=== PATIENT | female | born 1955 ===

== ENCOUNTER → 2017-04-16 | Day surgery (SDC) | payer SELFPAY ==
[2017-04-12 13:46] VITALS: Ht 144.8 cm; Wt 46.0 kg
[~2017-04-16] VITALS: Ht 144.8 cm; Wt 46.0 kg
[~2017-04-16] MED LIST: DIABETES MED PO; DIAMICRON PO; GLC/500 PO; GLIM4TAB2 PO; INSULIN HUMAN REGULAR PER UNIT 3 UNITS in SYRINGE 2.97 ML IV ONE; LABETALOL HCL IV 5 MG/ML 20ML IV ONE; LIDOCAINE HCL 2% 2 ML VIAL (20MG/ML) ONE; LOSA50TA54 PO; METF-382 PO; METF-383 PO; MIDAZOLAM HCL 1 MG/ML 2ML VIAL ONE; MULT-506 PO; ONDANSETRON INJ 2 MG/ML 2 ML VIAL IV PRN; ONDANSETRON INJ 2 MG/ML 2 ML VIAL ONE; PROPOFOL IV EMULSION 10 MG/ML 20 ML VIAL IV ONE; SIMV20TA2 PO; THIA50TA3 PO; [UNRECOGNIZED DRUG - OTHER] PO
--- NOTE | 2017-04-16 08:48 | Endo History and Physical ---
History & Physical Date of Service: Apr 16, 2017. Chief Complaint: Colon cancer screening Referring Physician: History of Present Illness Patient presents for colon cancer screening today. There is no family history or symptoms today. Consent was obtained using a [place] math interventionist Past Surgical History Hx Cardiac Surgery: No Hx Internal Defibrillator: No Hx Pacemaker: No Hx Abdominal Surgery: No Hx of Implantable Prosthesis: No Hx Cancer Surgery: No Hx Thoracic Surgery: No Hx Orthopedic: No Hx Urinary Tract Surgery: No Family History None Social History Smoking Status: Current Every Day Smoker Hx Substance Use: No Hx Alcohol Use: Yes (OCCASIONAL) Allergies Uncoded Allergies: NKA (Allergy, Unknown, 04/16/17) Current Medications Reported Home Medications Medications Dose Route/Sig Max Daily Dose Days Date Category Glimepiride 4 Mg Tab 1 Tab PO DAILY 30 04/16/17 Reported Multivitamin (Multivitamins) Tab 1 Tab PO DAILY 04/12/17 Reported Glucophage (Metformin Hcl) 500 Mg Tab 500 Mg PO BID 04/12/17 Reported Vital Signs Weight (Kilograms): 46 Height (Feet): 4 Height (Inches): 9 Physical Exam General Appearance: no apparent distress Respiratory/Chest: Auscultation: breath sounds normal Cardiovascular: Heart Auscultation: RRR Assessment and Plan Patient for colon cancer screening today. I have discussed the risks to include bleeding, infection, perforation pain and missed polyps. Consent was obtained using a [place] math interventionist.
--- NOTE | 2017-04-16 10:44 | Discharge Instructions ---
Endoscopy Patient Instructions Date / Procedure(s) Performed Apr 16, 2017. Colonoscopy Allergy Information Coded Allergies: No Known Allergies (Unverified , 04/16/17) Discharge Date / Findings Apr 16, 2017. Internal and external hemorrhoids Medication Instructions Reported Home Medications Medications Dose Route/Sig Max Daily Dose Days Date Category Glimepiride 4 Mg Tab 1 Tab PO DAILY 30 04/16/17 Reported Multivitamin (Multivitamins) Tab 1 Tab PO DAILY 04/12/17 Reported Glucophage (Metformin Hcl) 500 Mg Tab 500 Mg PO BID 04/12/17 Reported Provider Instructions Activity Restrictions - No exercising or heavy lifting for 24 hours. - Do not drink alcohol the day of the procedure. - Do not drive a car or operate machinery until the day after the procedure. - Do not make any important decisions or sign important papers in 24 hours after the procedure. Following Day: - Return to full activity which may include returning to work/school. Diet Start your diet with liquids and light foods (jello, soup, juice, toast). Then eat your usual diet if not nauseated. Treatment For Common After Affects For mild abdominal pain, bloating, or excessive gas: - Rest - Eat lightly - Lie on right side Follow-Up Information Repeat colonoscopy in 5 years (suboptimal bowel preparation) Given your elevated blood pressure I would suggest ER evaluation today. Otherwise please make a primary care appointment for this week Anesthesia Information What You Should Know You have had a procedure that required some medicine to reduce anxiety and discomfort. This treatment is called moderate sedation. After receiving the treatment, you may be sleepy, but you will be able to breathe on your own. The effects of the treatment may last for several hours. Follow these instructions along with Activity/Diet recommendations noted above: * Do NOT do anything where dizziness or clumsiness would be dangerous. * Rest quietly at home today, then you can be up and about tomorrow. * Have a responsible person stay with you the rest of today. * You may have had an I.V. today. If so, you may take the dressing off later today. Recommendations Call your doctor if: * Trouble breathing * Continuous vomiting for more than 24 hours * Temperature above 101 degrees * Severe abdominal pain or bloating * Pain not relieved by pain medicine ordered * There is increased drainage or redness from any incision * A large amount of rectal bleeding greater than 2-3 tablespoons. (If you had a polyp/s removed or have hemorrhoids, a small amount of blood - from the rectum is to be expected.) * You have any unanswered questions or concerns. IN THE EVENT OF A SERIOUS EMERGENCY, GO TO THE NEAREST EMERGENCY ROOM Your discharge instructions were prepared by provider Ashley Paris. Patient Instructions Signature Page Corrine Heard Patient (or Guardian) Signature/Date: I have read and understand the instructions given to me by my caregivers. Caregiver/RN/Doctor Signature/Date: The above-named patient and/or guardian has received patient instructions on this date. + Original Patient Signature Page (only) stays with chart. Please make copy for patient.
--- NOTE | 2017-04-16 10:48 | GI REPORT ---
Procedure Date: 04/16/2017 10:19 AM Procedure: Colonoscopy Indications: Screening for colorectal malignant neoplasm Medicines: Monitored Anesthesia Care Complications: No immediate complications. Estimated blood loss: Minimal. Estimated Blood Loss: Estimated blood loss: none. Procedure: Pre-Anesthesia Assessment: - Prior to the procedure, a History and Physical was performed, and patient medications, allergies and sensitivities were reviewed. The patient's tolerance of previous anesthesia was reviewed. - The risks and benefits of the procedure and the sedation options and risks were discussed with the patient. All questions were answered and informed consent was obtained. - Patient identification and proposed procedure were verified prior to the procedure by the physician, the nurse and the dispatcher street department. The procedure was verified in the procedure room. - Pre-procedure physical examination revealed no contraindications to sedation. - ASA Grade Assessment: III - A patient with severe systemic disease. - After reviewing the risks and benefits, the patient was deemed in satisfactory condition to undergo the procedure. - The anesthesia plan was to use monitored anesthesia care (MAC). - Immediately prior to administration of medications, the patient was re-assessed for adequacy to receive sedatives. - The heart rate, respiratory rate, oxygen saturations, blood pressure, adequacy of pulmonary ventilation, and response to care were monitored throughout the procedure. - The physical status of the patient was re-assessed after the procedure. After I obtained informed consent, the scope was passed under direct vision. Throughout the procedure, the patient's blood pressure, pulse, and oxygen saturations were monitored continuously. The scope was introduced through the anus and advanced to the terminal ileum. The colonoscopy was performed without difficulty. The patient tolerated the procedure well. The quality of the bowel preparation was adequate to identify polyps 6 mm and larger in size. Findings: The digital rectal exam findings include non-thrombosed external hemorrhoids. Pertinent negatives include normal sphincter tone. The terminal ileum appeared normal. Internal hemorrhoids were found during retroflexion. The hemorrhoids were moderate. The exam was otherwise without abnormality. Impression: - Non-thrombosed external hemorrhoids found on digital rectal exam. - The examined portion of the ileum was normal. - Internal hemorrhoids. - The examination was otherwise normal. Otherwise can handler who her power of document review attorney Recommendation: - Discharge patient to home (ambulatory). - Advance diet as tolerated today. - Repeat colonoscopy in 5 months because the bowel preparation was suboptimal. Marten Paris, D.Raghavendra Paris DO 04/16/2017 10:48:01 AM This report has been signed electronically. Note Initiated On: 04/16/2017 10:19 AM I attest to the content of the Intraoperative Record and orders documented therein, exceptions below
--- NOTE | 2017-04-16 11:22 | Progress Note ---
Progress Note Date of Service Apr 16, 2017. Progress Note I was called to see this patient prior to discharge. She has significant elevation of her systolic and diastolic blood pressures. It appears she does have a history of hypertension but is presently not on any medications as she recently moved the region. Given the drastic elevation of her blood pressure I would suggest an ER evaluation, the patient is presently refusing. We will make efforts to have her see her primary care doctor as an outpatient over the next few days. Again, I have advised that the patient seek medical attention in the ER today for her blood pressure elevation.
[2017-04-16 12:03] VITALS: BP 168/102; PULSE 83; O2SAT 98
--- NOTE | 2017-04-16 13:02 | Anesthesiology Progress Note ---
Anesthesia Post Op Note Date & Time Apr 16, 2017 at 12:42 Vital Signs Pain Intensity: 0 Vital Signs Past 12 Hours Date Time Temp Pulse Resp B/P (MAP) Pulse Ox O2 Delivery O2 Flow Rate FiO2 04/16/17 12:03 83 20 168/102 (124) 98 Room Air 04/16/17 11:48 80 20 175/99 (124) 97 Room Air 04/16/17 11:35 88 20 155/94 (114) 98 Room Air 04/16/17 11:29 99 20 184/112 (136) 98 Room Air 04/16/17 11:20 95 20 190/107 (134) 100 Room Air 04/16/17 11:15 89 20 183/116 (138) 99 Room Air 04/16/17 11:10 89 20 200/109 (139) 98 Room Air 04/16/17 11:05 91 20 173/107 (129) 98 Room Air 04/16/17 11:03 93 20 173/104 (127) 99 Room Air 04/16/17 10:48 96 20 140/91 (107) 100 Room Air 04/16/17 09:05 36.6 105 18 157/95 (115) 100 Room Air Notes Mental Status: alert / awake / arousable, participated in evaluation Pt Amnestic to Procedure: Yes Nausea / Vomiting: adequately controlled Pain: adequately controlled Airway Patency, RR, SpO2: stable & adequate BP & HR: stable & adequate Hydration State: stable & adequate Anesthetic Complications: no major complications apparent The patient is a 61 y/o female with a h/o HTN, NIDDM, + tob and depression s/ p colonoscopy with Dr. Paris. The patient is from [place] and came here recently. She does not speak [place] so a [place] hot plate plywood press feeder was used. Preoperatively, the patient's BSG was elevated to 271. She has held her Glucophage for 2 days. Per the patient and her daughter, the patient's blood sugars have been poorly controlled for some time since the patient has not seen a PCP since leaving [place]. At home, her blood sugars have been as high as 800 but usually average in the 300s. The patient was given 3 units regular IV Insulin and her BSG improved to 200. The patient's BP on arrival to the endoscopy unit was 157/95 and it tosha to 187/95 on arrival to the procedure room. The patient had been on BP medication in [place] but has not been on any since. Per the patient's daughter, the patient smokes and drinks heavily and is not compliant with a diabetic or hypertensive diet. During the procedure the patient did well with no issues. Her BP ranged from 110-180s/[id number]. In recovery, her BP became elevated to 183/116. She denied any chest pain, shortness of breath, headache, changes in vision, lightheaded or dizziness. The patient was given 10mg IV labetalol. I spoke to Dr. Paris who agreed that because the patient does not have an established PCP that she should go to the ED for further evaluation and treatment of her BP. The patient however refused to go to the ED and wanted to sign out AMA. A [place] hot plate plywood press feeder was used for all communication with the patient. She was informed of the risks of signing out AMA including the risk of stroke, myocardial infarction, sudden cardiac , respiratory failure and by refusing to go to the ED. She understood and signed the AMA form. Dr. Paris was able to get an appointment for her with a PCP for her to see tomorrow at 10:20 AM. The patient's BP on discharge with improved to 168/102 and she felt well with no complaints. She was instructed to go the to the ED if she has any chest pain, shortness of breath, lightheaded or dizziness, severe headache or changes in vision. She understands and agrees.
== END | disposition home or self-care (01) ==
LOC: C.GI 08:21
PROVIDERS: ATTEND Internal Medicine Gastroenterology
DX: Z12.11 Encounter for screening for malignant neoplasm of colon (principal); K64.8 Other hemorrhoids; K64.5 Perianal venous thrombosis; F17.200 Nicotine dependence, unspecified, uncomplicated; Z79.84 Long term (current) use of oral hypoglycemic drugs; Z79.899 Other long term (current) drug therapy

== ENCOUNTER 2021-10-29 12:31 | Inpatient (IN) ==
[2021-10-29] MEDS ORDERED: SODIUM CHLORIDE 0.9% 500 ML IV STA (13:06)
--- NOTE | 2021-10-29 13:22 | Emergency Department Note ---
History of Present Illness General Chief complaint: Hematuria Stated complaint: HEMATURIA Time Seen by Provider: 10/29/21 12:48 History of Present Illness Maximum Pain Intensity: 6 Patient and daughter elected to have the daughter translate for the patient. Patient's nurse from [place] is also in the room. This is a 66-year-old female who just moved to the [facility] from [place] 2 w eeks ago with a history of type 2 diabetes, hypertension, high cholesterol, accompanied by her daughter who has lived in [place] for 20+ years who presents with hematuria, lower abdominal pain, and flank pain that has been present for the past week. Patient reports lower abdominal pain only when she urinates. When she does not urinate she does not have any pain. She reports constant right-sided hip/flank pain that also began around this time. This does not come and go. She has never had anything like this happen to her before. They tried using [id number] UTI relief medication without any relief in her symptoms. They deny any dysuria, abnormal vaginal bleeding or discharge, fevers, chills, nausea, vomiting, diarrhea. Per daughter, she moved her [place] because the patient [place] town in [place] and did not have good health care and she was tired of listening to her mother complain about her living situation. Apparently when the [place] her blood sugars were as high as 800 although they are now down into the 300 range as she is eating better (was only eating twice per week) and they are controlling her diabetes better with insulin. Daughter states that her mother has drank "a lot" and smoked cigarettes all of her life. They visited an urgent care recently but have not been seen yet by primary care anywhere. Home Medications Medication Instructions Recorded Confirmed Type DAFORIN 10 drp PO DAILY #0 02/26/17 History DIAMICRON 1 tab PO BID #0 02/26/17 History LOSARTAN POTASSIUM (COZAAR) 50 mg PO BID #0 tab 02/26/17 History METFORMIN EXT REL (GLUCOPHAGE EXT 1 tab PO BID 30 Days #60 tab 02/26/17 Rx REL) METFORMIN HCL (GLUCOPHAGE) 850 mg PO BID #0 tab 02/26/17 History Simvastatin (Zocor) 10 mg PO QPM #0 tab 02/26/17 History Thiamine Hcl (Vitamin B-1) 1 tab PO DAILY #0 tab 02/26/17 History METFORMIN HCL (GLUCOPHAGE) 500 mg PO BID #0 04/12/17 History Multivitamin 1 tab PO DAILY #0 04/12/17 History GLIMEPIRIDE 1 tab PO DAILY 30 Days #30 tab 04/16/17 History aspirin 81 mg tablet 81 mg PO DAILY 10/29/21 10/29/21 History clopidogrel 75 mg tablet (Plavix) 75 mg PO DAILY 10/29/21 10/29/21 History Allergies Allergy/AdvReac Type Severity Reaction Status Date / Time No Known Allergies Allergy Unverified 04/16/17 09:29 Past Med/Surg History Medical History (Updated 10/29/21 @ 17:50 by BETTINA Bo) Diabetes High cholesterol HTN (hypertension) Family History (Updated 10/29/21 @ 17:39 by Suzan Shah PA-C) Mother Uterine cancer Social History Smoking Status: Never smoker Preferred Language: Hungarian Feels Safe at Home: Yes Review of Systems See HPI for pertinent positives & negatives. and A total of 10 systems reviewed and were otherwise negative Physical Exam Vital Signs Vital Signs - 24 hr 10/29/21 12:39 10/29/21 12:56 10/29/21 13:00 Temperature 36.5 C Temperature Source Oral Pulse Rate 98 H 97 H 99 H Pulse Rate from SpO2 Sensor Pulse Rhythm Regular Pulse Strength Normal Respiratory Rate 20 18 22 Respiratory Effort / Characteristics Non-Labored Spontaneous Respiratory Depth Normal Respiratory Pattern Regular Blood Pressure 175/96 H Blood Pressure Mean 122 Blood Pressure Position Sitting Pulse Oximetry 98 Oxygen Delivery Method Room Air Room Air Sepsis Recent Fever Within 48 Hours No Sepsis New/Unexplained Change in Mental Status No Sepsis Action Taken by Nursing No Action Required 10/29/21 13:10 10/29/21 13:20 10/29/21 13:27 Temperature Temperature Source Pulse Rate 97 H 96 H 95 H Pulse Rate from SpO2 Sensor 95 H Pulse Rhythm Pulse Strength Respiratory Rate 20 18 16 Respiratory Effort / Characteristics Respiratory Depth Respiratory Pattern Blood Pressure 209/119 H Blood Pressure Mean 149 Blood Pressure Position Pulse Oximetry 100 Oxygen Delivery Method Room Air Room Air Room Air Sepsis Recent Fever Within 48 Hours Sepsis New/Unexplained Change in Mental Status Sepsis Action Taken by Nursing 10/29/21 13:30 10/29/21 13:40 10/29/21 13:50 Temperature Temperature Source Pulse Rate 94 H 97 H 96 H Pulse Rate from SpO2 Sensor 94 H 97 H 96 H Pulse Rhythm Pulse Strength Respiratory Rate 17 17 20 Respiratory Effort / Characteristics Respiratory Depth Respiratory Pattern Blood Pressure 208/119 H Blood Pressure Mean 148 Blood Pressure Position Pulse Oximetry 100 99 100 Oxygen Delivery Method Room Air Room Air Room Air Sepsis Recent Fever Within 48 Hours Sepsis New/Unexplained Change in Mental Status Sepsis Action Taken by Nursing 10/29/21 14:00 10/29/21 14:10 Temperature Temperature Source Pulse Rate 95 H 91 H Pulse Rate from SpO2 Sensor 95 H 90 Pulse Rhythm Pulse Strength Respiratory Rate 17 20 Respiratory Effort / Characteristics Respiratory Depth Respiratory Pattern Blood Pressure 227/122 H Blood Pressure Mean 157 Blood Pressure Position Pulse Oximetry 99 100 Oxygen Delivery Method Room Air Room Air Sepsis Recent Fever Within 48 Hours Sepsis New/Unexplained Change in Mental Status Sepsis Action Taken by Nursing CONSTITUTIONAL: Thin appearing, in no acute distress HEAD: Normocephalic, atraumatic. ENMT: External ears normal. Nose with normal external appearance, no congestion. Oral mucous membranes moist. Oropharynx normal. NECK: Full active range of motion. RESPIRATORY: Breathing unlabored and symmetric. Lungs clear to auscultation bilaterally. No wheeze, rales, or rhonchi. CARDIOVASCULAR: Regular rate and rhythm. There is a 3 out of 6 systolic murmur identified at the aortic and pulmonic region. ABDOMEN: Normal bowel sounds. Abdomen is soft. There is right lower quadrant tenderness. No peritonitis. Liver palpates slightly enlarged. Right CVA tenderness is noted. Negative straight leg raise and psoas sign. GENITOURINARY: Gross hematuria is visualized in the urine specimen cup after providing sample MUSCULOSKELETAL: Moves all extremities at all joints without pain or difficulty. No cyanosis or edema. SKIN: [place], warm, dry. Not obviously jaundiced although conjunctiva have a slight scleral icterus appearance in the inferior 50%. NEUROLOGIC: Alert, makes eye contact appropriately. Responds appropriately to her daughter's questions. Normal tone. Strength 5+ in bilateral upper and lower extremities. PSYCHIATRIC: Appropriate. Normal affect. Course Consultations Consultation #1: Spoke with Suzan Shah PA-C ([facility] hospitalist) who consulted with her attending and requested that I consult with urology and CONTRACTS REPRESENTATIVE prior to admission to make sure they are comfortable with admitting the patient here for now Consultation #2: Spoke with Dr. Mitchell (urology) regarding the case and imaging findings who also visualized the CT scan. He recommended inserting a Richey catheter to decompress the bladder. From a urologic standpoint he is comfortable with the patient being admitted at this facility and would see her this evening. He would perform cystoscopy and CT urogram outpatient, unlikely to do this inpatient. Consultation #3: Spoke with Dr. Amador (submersible pilot [facility]) who was comfortable with the patient being admitted at this facility for initial work-up. He stated he would not perform surgery but felt it was reasonable to admit here to address other medical problems and decide whether she needed surgery. Administered Medications Discontinued Medications Sodium Chloride (Nss) 500 mls @ 999 mls/hr IV .Q31M STA Stop: 10/29/21 13:36 Last Infusion: 10/29/21 14:16 Dose: 0 mls/hr Documented by: [id number] Admin: 10/29/21 13:24 Dose: 999 mls/hr Documented by: [id number] Ioversol (Optiray 320 100ml) 94 ml IV ONCE ONE Stop: 10/29/21 14:55 Last Admin: 10/29/21 14:55 Dose: 94 ml Documented by: [id number] Labetalol HCl (Labetalol Hcl Iv 5 Mg/Ml 20ml) 10 mg IV NOW STA Stop: 10/29/21 16:11 Last Admin: 10/29/21 16:22 Dose: 10 mg Documented by: [id number] Cosigned by: [id number] Medical Decision Making Differential Diagnosis Hemorrhagic cystitis, kidney stone, pyelonephritis, muscle strain, intra- abdominal pathology, malignancy, among other pathology Medical Records Attestation: I reviewed the patient's medical records. Laboratory Data Result diagrams: 10/29/21 13:14 10/29/21 13:14 Lab Results 10/29/21 10/29/21 10/29/21 Range/Units 13:14 13:14 16:19 WBC 9.98 (4.8-10.8) K/uL RBC 3.19 L (4.2-5.4) M/uL Hgb 9.7 L (12.0-16.0) g/dL Hct 29.5 L (37-47) % MCV 92.5 (80-100) fL MCH 30.4 (25-34) pg MCHC 32.9 (32-36) g/dL RDW Std Deviation 41.6 (36.4-46.3) fL RDW Coeff of Nancy 12.1 (11.5-14.5) % Plt Count 327 (130-400) K/uL MPV 9.0 (7.4-10.4) fL Immature Gran % (Auto) 0.2 % Neut % (Auto) 50.9 % Lymph % (Auto) 31.0 % [place] % (Auto) 6.7 % Eos % (Auto) 10.8 % Baso % (Auto) 0.4 % Neut # (Auto) 5.08 (1.4-6.5) K/uL Lymph # (Auto) 3.09 (1.2-3.4) K/uL [place] # (Auto) 0.67 H (0.11-0.59) K/uL Eos # (Auto) 1.08 H (0-0.5) K/uL Baso # (Auto) 0.04 (0-0.2) K/uL Immature Gran # (Auto) 0.02 (0.00-0.02) K/uL Sodium 134 L (136-145) mmol/L Potassium 4.6 (3.5-5.1) mmol/L Chloride 103 (98-107) mmol/L Carbon Dioxide 26 (21-32) mmol/L Anion Gap 5 (3-11) BUN 30 H (6-23) mg/dl Creatinine 0.70 (0.6-1.2) mg/dl Est Cr Clr Drug Dosing Not Reportable Est GFR ( Amer) 105.4 ml/min Est GFR (Non-Af Amer) 90.9 ml/min BUN/Creatinine Ratio 42.9 H (10-20) Glucose 284 H (70-99(Fasting)) mg/dl Calcium 9.2 (8.5-10.1) mg/dl Total Bilirubin 0.4 (0.2-1.0) mg/dl AST 13 (13-39) U/L ALT 16 (7-52) U/L Alkaline Phosphatase 113 H (34-104) U/L Total Protein 6.7 (6.0-8.3) gm/dl Albumin 3.7 (3.4-5.0) gm/dl Globulin 3.0 (2.5-4.0) gm/dl Albumin/Globulin Ratio 1.2 (0.9-2) Lipase 10 L (11-82) U/L Urine Color Urine Appearance (Clear) Urine pH (4.5-7.5) Ur Specific [place] (1.000-1.030) Urine Protein (Negative) Urine Glucose (UA) (Negative) Urine Ketones (Negative) Urine Blood (Negative) Urine Nitrite (Negative) Urine Bilirubin (Negative) Urine Urobilinogen (Negative) Ur Leukocyte Esterase (Negative) Urine RBC (0-4) /hpf Urine WBC (0-5) /hpf Ur Epithelial Cells (0-5) /lpf Urine Bacteria (Negative) SARS-CoV-2, RNA, NAAT NEGATIVE (NEGATIVE) 10/29/21 Range/Units Unknown WBC (4.8-10.8) K/uL RBC (4.2-5.4) M/uL Hgb (12.0-16.0) g/dL Hct (37-47) % MCV (80-100) fL MCH (25-34) pg MCHC (32-36) g/dL RDW Std Deviation (36.4-46.3) fL RDW Coeff of Nancy (11.5-14.5) % Plt Count (130-400) K/uL MPV (7.4-10.4) fL Immature Gran % (Auto) % Neut % (Auto) % Lymph % (Auto) % [place] % (Auto) % Eos % (Auto) % Baso % (Auto) % Neut # (Auto) (1.4-6.5) K/uL Lymph # (Auto) (1.2-3.4) K/uL [place] # (Auto) (0.11-0.59) K/uL Eos # (Auto) (0-0.5) K/uL Baso # (Auto) (0-0.2) K/uL Immature Gran # (Auto) (0.00-0.02) K/uL Sodium (136-145) mmol/L Potassium (3.5-5.1) mmol/L Chloride (98-107) mmol/L Carbon Dioxide (21-32) mmol/L Anion Gap (3-11) BUN (6-23) mg/dl Creatinine (0.6-1.2) mg/dl Est Cr Clr Drug Dosing Est GFR ( Amer) ml/min Est GFR (Non-Af Amer) ml/min BUN/Creatinine Ratio (10-20) Glucose (70-99(Fasting)) mg/dl Calcium (8.5-10.1) mg/dl Total Bilirubin (0.2-1.0) mg/dl AST (13-39) U/L ALT (7-52) U/L Alkaline Phosphatase (34-104) U/L Total Protein (6.0-8.3) gm/dl Albumin (3.4-5.0) gm/dl Globulin (2.5-4.0) gm/dl Albumin/Globulin Ratio (0.9-2) Lipase (11-82) U/L Urine Color Red Urine Appearance Cloudy A (Clear) Urine pH 6.5 (4.5-7.5) Ur Specific [place] 1.025 (1.000-1.030) Urine Protein 3+ H (Negative) Urine Glucose (UA) 2+ H (Negative) Urine Ketones Negative (Negative) Urine Blood 3+ H (Negative) Urine Nitrite Negative (Negative) Urine Bilirubin Negative (Negative) Urine Urobilinogen Negative (Negative) Ur Leukocyte Esterase Negative (Negative) Urine RBC >30 H (0-4) /hpf Urine WBC 0-5 (0-5) /hpf Ur Epithelial Cells 0-5 (0-5) /lpf Urine Bacteria Negative (Negative) SARS-CoV-2, RNA, NAAT (NEGATIVE) Imaging Data Radiologist's Impression: Abdomen/Pelvis CT 10/29/21 13:46 CT abd pelvis IV con only CLINICAL HISTORY: gross hematuria x 1 wk w/ low abd r flank pain COMPARISON STUDY: No previous studies for comparison. CT DOSE: 249.20 mGy.cm TECHNIQUE: Standard CT of the Abdomen and Pelvis was performed with IV contrast. A dose lowering technique was utilized adhering to the principles of ALARA. Contrast Volume: Optiray 320, 94 ml. The patient did not receive oral contrast. FINDINGS: Lung base: The lung bases are clear. Abdominal cavity: There is no evidence for abdominal mass, adenopathy or ascites. Liver: There is homogeneous attenuation of the liver parenchyma. There is no evidence for enhancing mass lesion. Spleen: There is homogeneous attenuation of the splenic parenchyma. There is no enhancing mass lesion. Pancreas: There is homogeneous attenuation of the pancreatic parenchyma. There is no evidence for mass lesion or peripancreatic fluid collection. Gall Bladder: The gallbladder is well distended with no evidence for intraluminal calculi, wall thickening or pericholecystic edema. Adrenal glands: The adrenal glands are normal in size and attenuation. There is no evidence for enhancing mass lesion. Kidneys: There is homogeneous attenuation of the renal parenchyma bilaterally. There is no evidence for renal calculus or hydronephrosis. There is no evidence for enhancing mass. Bowel: There is moderate fecal impaction of the rectosigmoid colon with moderate fecal stasis more proximally. No gross bowel loop dilatation is seen. The small bowel loops are normally placed within the abdomen and pelvis without evidence for dilatation or obstruction. There is no evidence for mass lesion. There are no inflammatory changes present. There is no evidence for free air. Bladder: The bladder is mildly distended with no evidence for focal mass, calculus or diverticulum. There is air present within the bladder characteristic of recent instrumentation. : There is no evidence for pelvic mass or adenopathy. There is no evidence for pelvic ascites. There is evidence for previous hysterectomy. Vasculature: There is no evidence for aneurysmal dilatation of the abdominal aorta. Atherosclerotic calcification is present. Osseous structures: There is no acute osseous pathology. Degenerative changes are seen within the spine. IMPRESSION: 1. Moderate fecal impaction of the rectosigmoid colon with moderate fecal stasis of the more proximal colon. No evidence for obstruction. Normal small bowel. 2. No renal calculi or hydronephrosis. 3. Air within the bladder characteristic of recent instrumentation. 4. Additional nonacute findings are delineated above. ACT 112: Negative or not required by law. Electronically signed by: Russell Andino M.D. 10/29/2021 3:18 PM Pelvis Ultrasound 10/29/21 15:45 US pelvic complete CLINICAL HISTORY: questionable right cyst, uterine mass TECHNIQUE: Transabdominal and endovaginal sonogram of the pelvis is performed. COMPARISON: CT of the abdomen and pelvis from 10/29/2021 FINDINGS: Uterus: The uterus is anteverted and normal in size. No uterine masses are identified. The uterus measures 6.3 x 2.8 x 3.5 cm. Endometrial stripe: 4 mm which is slightly thickened for postmenopausal patient (upper limits of normal 3 mm). Additionally, of concern is small amount of free fluid seen within the endometrial canal. Right ovary: The right ovary appears grossly enlarged and cystic. There is debris present within the cyst with no soft tissue component. Anatomic Doppler f low is demonstrated at its periphery.. The cystic component measures 7.1 x 5.4 x 7.0 cm. No other ovarian tissue is seen. There is no other evidence for right adnexal mass or cyst. Left ovary: The left ovary is nonvisualized There is no evidence for left adnexal mass or cyst. Cul de sac: There is no free fluid noted in the cul-de-sac. IMPRESSION: 1. There is no evidence for uterine mass by ultrasound. However, there is very minimal thickening of the endometrium with trace fluid seen within the endometrial canal. Follow-up gynecological evaluation is recommended. 2. Large right adnexal/ovarian cyst with debris seen within it. This probably represents a cystadenoma. ACT 112: Negative or not required by law. Electronically signed by: Russell Andino M.D. 10/29/2021 5:46 PM MDM Narrative [id number] female presents with 1 week of gross hematuria accompanied by lower abdominal pain with urination and constant right flank pain. On exam she is hypertensive at 175/96, heart rate 98 although this had improved at time of my evaluation into a normal range. She does have a systolic murmur identified on exam, likely an incidental finding. We will have her follow-up with primary care regarding this. She has right CVA tenderness, right lower abdominal tenderness, and gross hematuria identified in the urine specimen cup. Overall she is in no acute distress, alert, answering questions to her daughter appropriately. Will obtain labs, check urine, and possibly obtain a CT scan depending on findings. Differential as above. Gentle IV fluids. Urine demonstrates 2+ glucose, 3+ blood, greater than 30 red blood cells. Negative for infection. Sodium is slightly depressed at 134 likely her baseline. BUN to creatinine ratio elevated at 42.9. This may be attributed to lack of muscle mass. Glucose 284 which certainly is elevated however compared to what she has been over the past few weeks is improved. No transaminitis. Normal kidney function. Anemia with a hemoglobin of 9.7. Compared to hemoglobin from 5 years ago this is a marked drop. Hypertension persisted, 227/122, labetalol ordered. CT was initially read as air in the bladder likely from instrumentation however this had not occurred. I also visualized a large cystic structure in the adnexal region and a possible mass inferior to that. I discussed this with the reading radiologist at length who reviewed the images and agreed placing an add endum on the initial read. There is concern there is a fistula into the bladder. Ultrasound was ordered at recommendation from radiologist and is pending at time of admission. I spoke with hospitalist Dr. Price who requested consult with urology and CONTRACTS REPRESENTATIVE. This was performed as described above. Richey catheter ordered at recommendation from urologist. At this time, patient will be admitted to start work-up for the hematuria and CT findings pending ultrasound results, and further management of her hyperglycemia, anemia which may require transfusion, hypertension management. Certainly she may end up requiring surgical intervention however this is not emergent and if patient requires this she could be transferred at that time. Impression & Plan Hematuria, Pelvic mass, Hypertension, Anemia, Hyperglycemia, Hyponatremia, A bdominal pain, lower Discharge Plan Visit Data Chief Complaint: Hematuria Stated Complaint: HEMATURIA ED Provider: [facility] Midlevel Provider: Jori Benavides Discharge Problem: Hematuria, Pelvic mass, Hypertension, Anemia, Hyperglycemia, Hyponatremia, Abdominal pain, lower Patient Disposition: Admitted As Inpatient Condition: Fair Forms Stand Alone Forms: My [facility], Virtual Emergency Department, Important Visit Information Prescriptions Prescriptions: No Action DAFORIN 10 drp PO DAILY Qty: 0 RF: 0 DIAMICRON 1 tab PO BID Qty: 0 RF: 0 LOSARTAN POTASSIUM (COZAAR) 50 MG tablet 50 mg PO BID Qty: 0 RF: 0 METFORMIN HCL (GLUCOPHAGE) 850 MG tablet 850 mg PO BID Qty: 0 RF: 0 Simvastatin (Zocor) 10 mg tablet 10 mg PO QPM Qty: 0 RF: 0 Thiamine Hcl (Vitamin B-1) tablet 1 tab PO DAILY Qty: 0 RF: 0 METFORMIN EXT REL (GLUCOPHAGE EXT REL) 500 MG tablet 1 tab PO BID 30 Days Qty: 60 RF: 1 METFORMIN HCL (GLUCOPHAGE) 500 MG tablet 500 mg PO BID Qty: 0 RF: 0 Multivitamin tablet 1 tab PO DAILY Qty: 0 RF: 0 GLIMEPIRIDE 4 MG tablet 1 tab PO DAILY 30 Days Qty: 30 RF: 5 clopidogrel [Plavix] 75 mg Tablet 75 mg PO DAILY RF: 0 aspirin 81 mg Tablet 81 mg PO DAILY RF: 0 Referrals Referrals: PCP,NO [Primary Care Provider] - Discharge Problem: Hematuria Qualifiers: Hematuria type: gross Qualified Code(s): R31.0 - Gross hematuria Hypertension Qualifiers: Hypertension type: unspecified Qualified Code(s): I10 - Essential (primary) hypertension Anemia Qualifiers: Anemia type: unspecified type Qualified Code(s): D64.9 - Anemia, unspecified
[2021-10-29 13:29] LABS: Basophils # (auto) 0.04 K/uL (0-0.2); Basophils % (auto) 0.4 %; Eosinophils # (auto) 1.08 K/uL (0-0.5); Eosinophils % (auto) 10.8 %; Hematocrit (blood only) 29.5 % (37-47); Hemoglobin 9.7 g/dL (12.0-16.0); Immature Granulocytes # (auto) 0.02 K/uL (0.00-0.02); Immature Granulocytes % (auto) 0.2 %; Lymphocytes # (auto) 3.09 K/uL (1.2-3.4); Mean Corpuscular Hemoglobin 30.4 pg (25-34); Mean Corpuscular Hgb Conc 32.9 g/dL (32-36); Mean Corpuscular Volume 92.5 fL (80-100); Monocytes # (auto) 0.67 K/uL (0.11-0.59); Monocytes % (auto) 6.7 %; Neutrophils # (auto) 5.08 K/uL (1.4-6.5); Neutrophils % (auto) 50.9 %; Platelet Count 327 K/uL (130-400); RDW Coefficient of Variation 12.1 % (11.5-14.5); RDW Standard Deviation 41.6 fL (36.4-46.3); Red Blood Count 3.19 M/uL (4.2-5.4); White Blood Count 9.98 K/uL (4.8-10.8)
[2021-10-29 13:35] LABS: Appearance Urine Cloudy (Clear); Bilirubin Urine Negative (Negative); Blood Urine 3+ (Negative); Color Urine Red; Glucose Urine UA 2+ (Negative); Ketones Urine Negative (Negative); Leukocyte Esterase Urine Negative (Negative); Nitrite Urine Negative (Negative); Protein Urine 3+ (Negative); Specific Gravity Urine 1.025 (1.000-1.030); Urobilinogen Urine Negative (Negative); pH Urine 6.5 (4.5-7.5)
[2021-10-29 13:40] LABS: Bacteria Urine Negative (Negative); Epithelial Cell Urine 0-5 /lpf (0-5); RBC Urine >30 /hpf (0-4); WBC Urine 0-5 /hpf (0-5)
[2021-10-29 13:59] LABS: Alanine Aminotransferase 16 U/L (7-52); Albumin Globulin Ratio 1.2 (0.9-2); Albumin Level 3.7 gm/dl (3.4-5.0); Alkaline Phosphatase 113 U/L (34-104); Anion Gap 5 (3-11); Aspartate Aminotransferase 13 U/L (13-39); BUN Creatinine Ratio 42.9 (10-20); Bilirubin,Total 0.4 mg/dl (0.2-1.0); Blood Urea Nitrogen 30 mg/dl (6-23); Calcium 9.2 mg/dl (8.5-10.1); Carbon Dioxide 26 mmol/L (21-32); Chloride 103 mmol/L (98-107); Est GFR (African American) 105.4 ml/min; Est GFR (Non-African American) 90.9 ml/min; Glucose 284 mg/dl (70-99(Fasting)); Lipase 10 U/L (11-82); Potassium 4.6 mmol/L (3.5-5.1); Sodium 134 mmol/L (136-145); Total Protein 6.7 gm/dl (6.0-8.3)
[2021-10-29] MEDS ORDERED: OPTIRAY 320 100ml IV ONE (14:54)
--- NOTE | 2021-10-29 15:20 | CT Scan Report ---
CT abd pelvis IV con only CLINICAL HISTORY: gross hematuria x 1 wk w/ low abd r flank pain COMPARISON STUDY: No previous studies for comparison. CT DOSE: 249.20 mGy.cm TECHNIQUE: Standard CT of the Abdomen and Pelvis was performed with IV contrast. A dose lowering joseluis hnique was utilized adhering to the principles of ALARA. Contrast Volume: Optiray 320, 94 ml. The patient did not receive oral contrast. FINDINGS: Lung base: The lung bases are clear. Abdominal cavity: There is no evidence for abdominal mass, adenopathy or ascites. Liver: There is homogeneous attenuation of the liver parenchyma. There is no evidence for enhancing m ass lesion. Spleen: There is homogeneous attenuation of the splenic parenchyma. There is no enhancing mass lesion . Pancreas: There is homogeneous attenuation of the pancreatic parenchyma. There is no evidence for mas s lesion or peripancreatic fluid collection. Gall Bladder: The gallbladder is well distended with no evidence for intraluminal calculi, wall thick ening or pericholecystic edema. Adrenal glands: The adrenal glands are normal in size and attenuation. There is no evidence for enhan cing mass lesion. Kidneys: There is homogeneous attenuation of the renal parenchyma bilaterally. There is no evidence f or renal calculus or hydronephrosis. There is no evidence for enhancing mass. Bowel: There is moderate fecal impaction of the rectosigmoid colon with moderate fecal stasis more pr oximally. No gross bowel loop dilatation is seen. The small bowel loops are normally placed within th e abdomen and pelvis without evidence for dilatation or obstruction. There is no evidence for mass le jey. There are no inflammatory changes present. There is no evidence for free air. Bladder: The bladder is mildly distended with no evidence for focal mass, calculus or diverticulum. T here is air present within the bladder characteristic of recent instrumentation. : There is no evidence for pelvic mass or adenopathy. There is no evidence for pelvic ascites. Ther e is evidence for previous hysterectomy. Vasculature: There is no evidence for aneurysmal dilatation of the abdominal aorta. Atherosclerotic c alcification is present. Osseous structures: There is no acute osseous pathology. Degenerative changes are seen within the spi ne. IMPRESSION: 1. Moderate fecal impaction of the rectosigmoid colon with moderate fecal stasis of the more proximal colon. No evidence for obstruction. Normal small bowel. 2. No renal calculi or hydronephrosis. 3. Air within the bladder characteristic of recent instrumentation. 4. Additional nonacute findings are delineated above. ACT 112: Negative or not required by law. Electronically signed by: Russell Andino M.D. 10/29/2021 3:18 PM
[2021-10-29] MEDS ORDERED: LABETALOL HCL IV 5 MG/ML 20ML IV STA (16:10)
--- NOTE | 2021-10-29 17:27 | History & Physical Report ---
Date of Service October 29, 2021 Assessment & Plan (1) Hematuria: (2) Pelvic mass: Plan: -Admit to [facility] -Consult urology and gynecology for concern for fistula/adnexal/ovarian cyst- possible malignancy? Patient admits to having significant weight loss within the past 10 months. In December 2021 she weighed approximately 65 kg and was down to 35 whenever she came [place] the [place] 1 [place] ago to live with her daughter. Her weight is improved today back up to 56.5 kg. Consider transfer to tertiary care center if needs for surgical seizure is warranted or if needs for inpatient oncological services -Pain control ordered -UA, urine culture in process, follow -Rocephin 1 g daily ordered (3) Hypertension: Plan: -BP has been elevated at 220/122, will order labetalol 10 mg every 6 hours with parameters -It appears that she is on losartan as an outpatient we will continue 20 mg daily as med rec is unknown (4) Anemia: Plan: -Hemoglobin of 9.7, on previous lab draws from when she has been here before was 13.2 in 2017 -Type and cross ordered, keep 2 units on hold -H&H every 8 hours -IV fluids at 80 mL/h x 2 L (5) Hyponatremia: Plan: -NSS at 80 mL/h x 2 L, was 134 on admission (6) Diabetes: Plan: -ISS with Accu-Cheks ACHS -A1c with a.m. labs -Outpatient is on glimepiride and insulin unknown dose DVT PPx: - teds, scds, no chemical prophylaxis in the setting of hematuria, holding outpatient aspirin and Plavix CODE: Full code Dispo: From home, likely to remain in the hospital x 1-2 days History of Present Illness Chief Complaint: Hematuria Primary Care Provider: NO PCP This is a 66 yo F with PMhx of DM II, HTN, chronic tobacco use, history of alcohol use, and syncope who presents with hematuria x 1 week to the hospital. She has recently relocated here from [place] as her daughter has lived in [place] for over 20 years. The patient does not speak any Cameroonian, but the daughter who is present at beside is fluent. Pt reports hematuria, bright red blood with urination for the past week. She also has right sided flank pain and RLQ which started about 1 week ago, and rates her pain as 8/10. Alleviating factors include laying down, when she is up and moving it is worse. The pain radiates in the lower abdomen. Her last bowel movement was this morning. Denies any nausea, vomiting, diarrhea. Pt feels palpitations. Notes her appetite has been down, and was previously at 68 kg last year and per daughter was at 35 kg and has gained some weight recently due to being here in the [place] with her daughter and eating better Has smoked 1 ppd x entire adult life. Ok with using a nicotine patch. Reports that the last time she drank alcohol was 5 years ago. Patient has recently established with PCP, Dr. Patel and has seen him once. She also was in to see an child & adolescent psychiatrist recently as was informed with her diabetes that she was at risk of becoming blind due to uncontrolled glucoses. Sugars were around 800 consistently whenever she arrived here in the [place], and have been improved down into the 300s more recently with starting insulin and metformin. In regards to her home medications, doses are unknown at this time. She is taking baby aspirin and Plavix, but we will hold these here with her hematuria. Due to CT of the abdomen showing air bubbles along the floor of the bladder and posterior to the bladder in the region of the vagina-- question and concern for fistula?, Also pelvic ultrasound reveals large right adnexal/ovarian cyst with debris seen within it, probably represents a cystadenoma. CT measures this ovarian cyst to be 7.9 x 6.3 cm. Ultrasound reveals endometrium thickening and trace free fluid seen within the endometrial canal. Denies any previous surgical history. Daughter reports that she may have had gynecological exam many many years ago but has not had routine cancer/prev entative screenings. Allergies Allergy/AdvReac Type Severity Reaction Status Date / Time No Known Allergies Allergy Unverified 04/16/17 09:29 Home Medications Medication Instructions Recorded Confirmed Type DAFORIN 10 drp PO DAILY #0 02/26/17 History DIAMICRON 1 tab PO BID #0 02/26/17 History LOSARTAN POTASSIUM (COZAAR) 50 mg PO BID #0 tab 02/26/17 History METFORMIN EXT REL (GLUCOPHAGE EXT 1 tab PO BID 30 Days #60 tab 02/26/17 Rx REL) METFORMIN HCL (GLUCOPHAGE) 850 mg PO BID #0 tab 02/26/17 History Simvastatin (Zocor) 10 mg PO QPM #0 tab 02/26/17 History Thiamine Hcl (Vitamin B-1) 1 tab PO DAILY #0 tab 02/26/17 History METFORMIN HCL (GLUCOPHAGE) 500 mg PO BID #0 04/12/17 History Multivitamin 1 tab PO DAILY #0 04/12/17 History GLIMEPIRIDE 1 tab PO DAILY 30 Days #30 tab 04/16/17 History aspirin 81 mg tablet 81 mg PO DAILY 10/29/21 10/29/21 History clopidogrel 75 mg tablet (Plavix) 75 mg PO DAILY 10/29/21 10/29/21 History Past Med/Surg History Medical History Diabetes High cholesterol HTN (hypertension) Family History Mother Uterine cancer Social History Smoking Status: Current every day smoker Cigarettes Per Day: 1 pack a day; Do You Dip or Chew Tobacco: No; Hx Alcohol Use: Yes Alcohol type: other Hx Substance Use: No Preferred Language: Burundian [employer] Required: Yes Beliefs That Will Affect Care: None Current Living Situation: Family Current Living Situation Comment: Lives with daughter Other Information That Helps Us Care for You: No Feels Safe at Home: Yes Safety Concerns: Feels Safe At This Time Assistive Devices: None Review of Systems Review of Systems: Constitutional: No fever, sweats or chills Eyes: No diplopia, no worsening or blurred vision, recently saw eye doctor ENT: normal hearing, no trouble swallowing Respiratory: No cough, sputum, dyspnea at rest or on exertion Cardiovascular: No chest pain, tightness or palpitations Abdomen: As per HPI, some poor appetite intermittently, was unable to get much food prior to 4 weeks ago when living in [place]. no nausea, vomiting, diarrhea or constipation Musculoskeletal: No joint pain, calf pain, swelling Neurologic: No weakness, numbness/tingling, or balance problems Psychiatric: No anxiety or depression Skin: No rash or itch Physical Exam Physical Exam: General: Petite Egyptian woman, awake, alert, no apparent distress, +shivering Head: Normocephalic, atraumatic ENT: PERRL, EOMI, no pharyngeal exudate, mucous membranes moist Chest: Clear to auscultation, on room air, no adventitious breath sounds Cardiac: Regular rate and rhythm, no murmur, no JVD, normal peripheral pulses, good capillary refill Abdominal: NABS x 4 quadrants, soft, nondistended, R flank pain with palpation, some tenderness in the LLQ, no rebound or guarding Extremities: Normal inspection, no peripheral edema or erythema, calfs nontender to palpation Psych: Normal mood and affect Neuro: AAO x 3, strength intact bilaterally and rated 5/5, no motor deficits, speech is clear, no peripheral sensory deficits Results & Data Results & Data ([facility]) Vital Signs (Past 12 Hours) Vital Signs Temp Pulse Resp BP Pulse Ox 10/29/21 14:10 91 H 20 100 10/29/21 14:00 95 H 17 227/122 H 99 10/29/21 13:50 96 H 20 100 10/29/21 13:40 97 H 17 99 10/29/21 13:30 94 H 17 208/119 H 100 10/29/21 13:27 95 H 16 209/119 H 100 10/29/21 13:20 96 H 18 10/29/21 13:10 97 H 20 10/29/21 13:00 99 H 22 10/29/21 12:56 97 H 18 10/29/21 12:39 36.5 C 98 H 20 175/96 H 98 Laboratory Results 10/29/21 10/29/21 10/29/21 Unknown 16:19 13:14 WBC RBC Hgb Hct MCV MCH MCHC RDW Std Deviation RDW Coeff of Nancy Plt Count MPV Immature Gran % (Auto) Neut % (Auto) Lymph % (Auto) [place] % (Auto) Eos % (Auto) Baso % (Auto) Neut # (Auto) Lymph # (Auto) [place] # (Auto) Eos # (Auto) Baso # (Auto) Immature Gran # (Auto) Sodium 134 L Potassium 4.6 Chloride 103 Carbon Dioxide 26 Anion Gap 5 BUN 30 H Creatinine 0.70 Est Cr Clr Drug Dosing Not Reportable Est GFR ( Amer) 105.4 Est GFR (Non-Af Amer) 90.9 BUN/Creatinine Ratio 42.9 H Glucose 284 H Calcium 9.2 Total Bilirubin 0.4 AST 13 ALT 16 Alkaline Phosphatase 113 H Total Protein 6.7 Albumin 3.7 Globulin 3.0 Albumin/Globulin Ratio 1.2 Lipase 10 L Urine Color Red Urine Appearance Cloudy A Urine pH 6.5 Ur Specific [place] 1.025 Urine Protein 3+ H Urine Glucose (UA) 2+ H Urine Ketones Negative Urine Blood 3+ H Urine Nitrite Negative Urine Bilirubin Negative Urine Urobilinogen Negative Ur Leukocyte Esterase Negative Urine RBC >30 H Urine WBC 0-5 Ur Epithelial Cells 0-5 Urine Bacteria Negative SARS-CoV-2, RNA, NAAT NEGATIVE 10/29/21 13:14 WBC 9.98 RBC 3.19 L Hgb 9.7 L Hct 29.5 L MCV 92.5 MCH 30.4 MCHC 32.9 RDW Std Deviation 41.6 RDW Coeff of Nancy 12.1 Plt Count 327 MPV 9.0 Immature Gran % (Auto) 0.2 Neut % (Auto) 50.9 Lymph % (Auto) 31.0 [place] % (Auto) 6.7 Eos % (Auto) 10.8 Baso % (Auto) 0.4 Neut # (Auto) 5.08 Lymph # (Auto) 3.09 [place] # (Auto) 0.67 H Eos # (Auto) 1.08 H Baso # (Auto) 0.04 Immature Gran # (Auto) 0.02 Sodium Potassium Chloride Carbon Dioxide Anion Gap BUN Creatinine Est Cr Clr Drug Dosing Est GFR ( Amer) Est GFR (Non-Af Amer) BUN/Creatinine Ratio Glucose Calcium Total Bilirubin AST ALT Alkaline Phosphatase Total Protein Albumin Globulin Albumin/Globulin Ratio Lipase Urine Color Urine Appearance Urine pH Ur Specific [place] Urine Protein Urine Glucose (UA) Urine Ketones Urine Blood Urine Nitrite Urine Bilirubin Urine Urobilinogen Ur Leukocyte Esterase Urine RBC Urine WBC Ur Epithelial Cells Urine Bacteria SARS-CoV-2, RNA, NAAT Diagnostic Findings Abdomen/Pelvis CT 10/29/21 13:46 CT abd pelvis IV con only CLINICAL HISTORY: gross hematuria x 1 wk w/ low abd r flank pain COMPARISON STUDY: No previous studies for comparison. CT DOSE: 249.20 mGy.cm TECHNIQUE: Standard CT of the Abdomen and Pelvis was performed with IV contrast. A dose lowering technique was utilized adhering to the principles of ALARA. Contrast Volume: Optiray 320, 94 ml. The patient did not receive oral contrast. FINDINGS: Lung base: The lung bases are clear. Abdominal cavity: There is no evidence for abdominal mass, adenopathy or ascites. Liver: There is homogeneous attenuation of the liver parenchyma. There is no evidence for enhancing mass lesion. Spleen: There is homogeneous attenuation of the splenic parenchyma. There is no enhancing mass lesion. Pancreas: There is homogeneous attenuation of the pancreatic parenchyma. There is no evidence for mass lesion or peripancreatic fluid collection. Gall Bladder: The gallbladder is well distended with no evidence for intraluminal calculi, wall thickening or pericholecystic edema. Adrenal glands: The adrenal glands are normal in size and attenuation. There is no evidence for enhancing mass lesion. Kidneys: There is homogeneous attenuation of the renal parenchyma bilaterally. There is no evidence for renal calculus or hydronephrosis. There is no evidence for enhancing mass. Bowel: There is moderate fecal impaction of the rectosigmoid colon with moderate fecal stasis more proximally. No gross bowel loop dilatation is seen. The small bowel loops are normally placed within the abdomen and pelvis without evidence for dilatation or obstruction. There is no evidence for mass lesion. There are no inflammatory changes present. There is no evidence for free air. Bladder: The bladder is mildly distended with no evidence for focal mass, calculus or diverticulum. There is air present within the bladder characteristic of recent instrumentation. : There is no evidence for pelvic mass or adenopathy. There is no evidence for pelvic ascites. There is evidence for previous hysterectomy. Vasculature: There is no evidence for aneurysmal dilatation of the abdominal aorta. Atherosclerotic calcification is present. Osseous structures: There is no acute osseous pathology. Degenerative changes are seen within the spine. IMPRESSION: 1. Moderate fecal impaction of the rectosigmoid colon with moderate fecal stasis of the more proximal colon. No evidence for obstruction. Normal small bowel. 2. No renal calculi or hydronephrosis. 3. Air within the bladder characteristic of recent instrumentation. 4. Additional nonacute findings are delineated above. ACT 112: Negative or not required by law. Electronically signed by: Russell Andino M.D. 10/29/2021 3:18 PM Pelvis Ultrasound 10/29/21 15:45 US pelvic complete CLINICAL HISTORY: questionable right cyst, uterine mass TECHNIQUE: Transabdominal and endovaginal sonogram of the pelvis is performed. COMPARISON: CT of the abdomen and pelvis from 10/29/2021 FINDINGS: Uterus: The uterus is anteverted and normal in size. No uterine masses are identified. The uterus measures 6.3 x 2.8 x 3.5 cm. Endometrial stripe: 4 mm which is slightly thickened for postmenopausal patient (upper limits of normal 3 mm). Additionally, of concern is small amount of free fluid seen within the endometrial canal. Right ovary: The right ovary appears grossly enlarged and cystic. There is debris present within the cyst with no soft tissue component. Anatomic Doppler flow is demonstrated at its periphery.. The cystic component measures 7.1 x 5.4 x 7.0 cm. No other ovarian tissue is seen. There is no other evidence for right adnexal mass or cyst. Left ovary: The left ovary is nonvisualized There is no evidence for left adnexal mass or cyst. Cul de sac: There is no free fluid noted in the cul-de-sac. IMPRESSION: 1. There is no evidence for uterine mass by ultrasound. However, there is very minimal thickening of the endometrium with trace fluid seen within the endometrial canal. Follow-up gynecological evaluation is recommended. 2. Large right adnexal/ovarian cyst with debris seen within it. This probably represents a cystadenoma. ACT 112: Negative or not required by law. Electronically signed by: Russell Andino M.D. 10/29/2021 5:46 PM Code Status & VTE Plan Code Status Full code -discussed with the patient and her daughter at bedside VTE Prophylaxis Plan VTE Prophylaxis will be ordered: Yes Supervising Physician Co-Signing Physician Notes Patient is a 66 yr old female with history of diabetes mellitus, hypertension, tobacco use disorder and other medical problems presents with history of hematuria since 1 week duration. Also complains of right lower quadrant abdominal pain which is been gradually worsening, which worsens with movement and improves with rest. Patient had significant weight loss in the past few months and has decreased appetite. Please review HPI for complete details of presentation. Blood work suggestive of hemoglobin 9.7, normal WBC count 9.98, platelet count 327, sodium 134, potassium 4.6, creatinine 0.70, glucose 244, lipase 10, TSH 4.4, HbA1c 6.7, urinalysis suggestive of hematuria, COVID screen negative, CT abdomen suggestive of moderate fecal impaction of the rectosigmoid colon, also noted fluid-filled structure in the right lower quadrant thought to be likely adnexal cyst or ovarian cyst measuring 7.9x 6.3 cm and findings suggestive of air bubbles along the floor of the bladder and posterior to the bladder region of the vagina suggestive of fistula. Physical Exam: Vitals signs as noted above General Appearance:Thin, frail, chronic ill appearing, no apparent distress Head: normocephalic, Atraumatic Eyes: normal inspection, EOMI Neck: supple, Trachea midline Respiratory/Chest: Normal breath sounds, CTA Cardiovascular: S1, S2, No murmur Abdomen/GI:Soft, R flank tender, Bowel sounds present Extremities/Musculoskeletal:normal inspection, no edema Neurologic/Psych:AAOX3, grossly no focal neurological deficits Skin: normal color, warm Pelvic Mass Hematuria Suspected Colovaginal fistula Hypertensive Urgency Tobacco use disorder Diabetes mellitus Agree with consulting urology, OGYN for further evaluation Tumor markers ordered Blood pressure, diabetes control Monitor sodium levels Nicotine patch Pain control Likely will need to be transferred to tertiary care facility for further management. (1) Hematuria Hematuria type: gross Qualified Code(s): R31.0 - Gross hematuria (2) Anemia Anemia type: unspecified type Qualified Code(s): D64.9 - Anemia, unspecified (3) Hypertension Hypertension type: unspecified Qualified Code(s): I10 - Essential (primary) hypertension
--- NOTE | 2021-10-29 17:49 | Ultrasound Report ---
US pelvic complete CLINICAL HISTORY: questionable right cyst, uterine mass TECHNIQUE: Transabdominal and endovaginal sonogram of the pelvis is performed. COMPARISON: CT of the abdomen and pelvis from 10/29/2021 FINDINGS: Uterus: The uterus is anteverted and normal in size. No uterine masses are identified. The uterus pau sures 6.3 x 2.8 x 3.5 cm. Endometrial stripe: 4 mm which is slightly thickened for postmenopausal patient (upper limits of norm al 3 mm). Additionally, of concern is small amount of free fluid seen within the endometrial canal. Right ovary: The right ovary appears grossly enlarged and cystic. There is debris present within the cyst with no soft tissue component. Anatomic Doppler flow is demonstrated at its periphery.. The cys tic component measures 7.1 x 5.4 x 7.0 cm. No other ovarian tissue is seen. There is no other evidenc e for right adnexal mass or cyst. Left ovary: The left ovary is nonvisualized There is no evidence for left adnexal mass or cyst. Cul de sac: There is no free fluid noted in the cul-de-sac. IMPRESSION: 1. There is no evidence for uterine mass by ultrasound. However, there is very minimal th ickening of the endometrium with trace fluid seen within the endometrial canal. Follow-up gynecologic al evaluation is recommended. 2. Large right adnexal/ovarian cyst with debris seen within it. This probably represents a cystadenom a. ACT 112: Negative or not required by law. Electronically signed by: Russell Andino M.D. 10/29/2021 5:46 PM
--- NOTE | 2021-10-29 17:52 | Emergency Department Note ---
ED Visit Note I was consulted by the Advanced Practice Provider. I saw the patient personally and performed a substantive portion of the visit. This includes aspects of the HPI, MDM, diagnostic interpretations, and disposition/plan. . : Hematuria Qualifiers: Hematuria type: gross Qualified Code(s): R31.0 - Gross hematuria Hypertension Qualifiers: Hypertension type: unspecified Qualified Code(s): I10 - Essential (primary) hypertension Anemia Qualifiers: Anemia type: unspecified type Qualified Code(s): D64.9 - Anemia, unspecified
[2021-10-29] MEDS ORDERED: SODIUM CHLORIDE 0.9% 250 ML IV PRN (18:11)
[2021-10-29] MEDS ORDERED: SODIUM CHLORIDE 0.9% 1000ML 1,000 ML IV SCH (18:15)
[2021-10-29] MEDS ORDERED: NICOTINE 21 MG/24 HR TDSY TD ONE (18:43)
[2021-10-29 19:10] LABS: Hematocrit (blood only) 32.1 % (37-47); Hemoglobin 10.6 g/dL (12.0-16.0)
[2021-10-29] MEDS ORDERED: hydrOXYzine HCl 25 MG TAB ONE (19:11)
[2021-10-29] MEDS ORDERED: LORazepam 0.5 MG in SYRINGE 0.25 ML IV STA (20:18)
[2021-10-29] MEDS ORDERED: LORazepam 2 MG/1 ML VIAL ONE (20:20)
[2021-10-29] MEDS: LABETALOL HCL IV 5 MG/ML 20ML IV PRN (20:40)
[2021-10-29] MEDS: cefTRIAXone SODIUM 1,000 MG/50 ML BAG IV SCH (20:53)
[2021-10-29] MEDS ORDERED: GLUCOSE 40% GEL 15 GM TUBE PO PRN (21:21)
[2021-10-29] MEDS ORDERED: hydrOXYzine HCl 25 MG TAB PO STA (21:21)
[2021-10-29] MEDS ORDERED: INSULIN GLARGINE SOLOSTAR 100 UNITS/ML 3 ML PEN SC SCH (21:21)
[2021-10-29] MEDS ORDERED: ACETAMINOPHEN 325 MG TAB PO PRN (21:21)
[2021-10-29] MEDS ORDERED: ONDANSETRON INJ 2 MG/ML 2 ML VIAL IV PRN (21:21)
[2021-10-29] MEDS ORDERED: DEXTROSE 50% 50 ML SYRINGE IV PRN (21:21)
[2021-10-29] MEDS ORDERED: CARBOHYDRATES FOR HYPOGLYCEMIA PO PRN (21:21)
[2021-10-29] MEDS ORDERED: GLUCOSE 10 TABS/TUBE PO PRN (21:21)
[2021-10-29] MEDS ORDERED: GLUCAGON FOR INJ 1 MG VIAL SQ PRN (21:21)
[2021-10-29] MEDS ORDERED: MoRPHine SULFATE 2 MG/ML CARP IV PRN (21:21)
[2021-10-29] MEDS ORDERED: PHARMACY GLYCEMIC MGMT CONSULT PRN ×2 (21:21)
[2021-10-29] MEDS: NICOTINE 21 MG/24 HR TDSY TD SCH (21:39)
[2021-10-29] MEDS: INSULIN ASPART PER UNIT SC SCH (21:52)
[2021-10-29] MEDS: LOSARTAN POTASSIUM 50 MG TAB PO SCH (22:03)
[2021-10-29] MEDS ORDERED: hydrALAZINE HCL 20 MG/ML VIAL IV STA (23:04)
[2021-10-30 03:25] LABS: Hematocrit (blood only) 24.8 % (37-47); Hemoglobin 8.2 g/dL (12.0-16.0); Mean Corpuscular Hemoglobin 30.6 pg (25-34); Mean Corpuscular Hgb Conc 33.1 g/dL (32-36); Mean Corpuscular Volume 92.5 fL (80-100); Platelet Count 285 K/uL (130-400); RDW Coefficient of Variation 11.9 % (11.5-14.5); RDW Standard Deviation 40.4 fL (36.4-46.3); Red Blood Count 2.68 M/uL (4.2-5.4); White Blood Count 9.54 K/uL (4.8-10.8)
[2021-10-30 03:46] LABS: Albumin Globulin Ratio 1.4 (0.9-2); Albumin Level 3.5 gm/dl (3.4-5.0); Bilirubin,Total 0.3 mg/dl (0.2-1.0); Chol HDL Ratio 2.5 (0-5); Creatinine Clr Calc Pharmacy 58.5 ml/min; Est GFR (African American) 110.3 ml/min; Est GFR (Non-African American) 95.1 ml/min; Globulin 2.5 gm/dl (2.5-4.0); Magnesium 2.1 mg/dl (1.7-2.4); Phosphorus 4.2 mg/dl (2.5-4.9); Potassium 4.1 mmol/L (3.5-5.1)
[2021-10-30 08:05] LABS: Estimated Average Glucose 146 mg/dl; Hemoglobin A1C 6.7 % (4.5-5.6)
--- NOTE | 2021-10-30 08:51 | Urology Consultation ---
Date of Consultation October 30, 2021 Assessment & Plan (1) Hematuria: 66yo F admitted with gross hematuria and abdominal pain and incidentally found to have large pelvic mass and possible bladder fistula. Urology consulted for gross hematuria, possible bladder fistula. - Plan of care and imaging reviewed with Dr. Mathur, on-call urologist. - CTAP reviewed - Air seen along the floor of the bladder and posterior to the bladder in the region of the vagina, concerning for possible fistula. - Afebrile, hemodynamically stable. - Labs reviewed- No leukocytosis. Renal function normal. Hemoglobin 8.2. - Hematuria likely d/t fistula, inflammation. Urine clear yellow this morning. Maintain Richey catheter and continue to monitor. - Given the concern for vesicovaginal, colovaginal, and/or colovesical fistula, will need diagnostics and management with surgical specialists. Options from ur ologic standpoint minimal and limited. As such, our recommendation is for transfer to a tertiary center with colorectal surgery for further work-up and management. Hematuria work-up should be completed concurrently with fistula work-up. - Discussed recommendations with hospital team. - Continue supportive care and management per primary team. - Urology will sign-off. Please contact us with any further questions, concerns, or changes in patient status. History of Present Illness Reason for Consultation: Hematuria, mass Attending Physician: Juan Price MD History of Present Illness 66-year-old female with a past medical history including DM II, HTN, chronic tobacco use, history of alcohol use, and syncope admitted for gross hematuria and abdominal pain. Hospital course reviewed. Patient reported bright red blood with urination over the past week. She also noted right-sided flank pain and right lower quadrant pain which started a week ago as well. On arrival, she was afebrile, no leukocytosis, renal function normal. Urinalysis with 3+ blood, > 30RBC, negative nitrates, negative leukocytes esterase, negative bacteria. CT abdomen pelvis was obtained and notable for air bubbles along the floor of the bladder and the posterior to the bladder in the region of the vagina, presence of a fistula could not be excluded. Urology consulted for gross hematuria, possible bladder fistula, mass Pt examined at bedside. Asleep on arrival, awakened to name. Appears comfortable, in no acute distress. Richey catheter intact, draining clear yellow urine. Denies any pain at present. Daughter at bedside who provides HPI. The patient does not speak any German. Daughter denies prior hx of urological issues or concerns. Patient recently relocated here from [place] as her daughter has lived in [place] for over 20 years. Has smoked 1 ppd x entire adult life. She takes aspirin and Plavix, which is currently on hold. CT abdomen pelvis IMPRESSION: 1. Moderate fecal impaction of the rectosigmoid colon with moderate fecal stasis of the more proximal colon. No evidence for obstruction. Normal small bowel. 2. No renal calculi or hydronephrosis. 3. Air within the bladder characteristic of recent instrumentation. 4. Additional nonacute findings are delineated above. ADDENDUM Following consultation with the ordering physician, it is noted that the patient has not had instrumentation of the bladder. There are a few air bubbles also seen along the floor the bladder and posterior to the bladder in the region of the vagina. The presence of a fistula cannot be excluded. Additionally, there is heterogeneous enhancement of the uterus which is tilted to the right side. There is suspicion of thickening of the endometrium for a patient of this age. Follow-up pelvic ultrasound is recommended for further evaluation. There is also a fluid-filled structure in the right lower quadrant which was originally felt to represent a loop of bowel. On further review, it appears to r epresent a separate structure such as an adnexal cyst or ovarian cyst. It measures 7.9 x 6.3 cm. Again, pelvic ultrasound would be helpful for further evaluation. Allergies Allergy/AdvReac Type Severity Reaction Status Date / Time No Known Allergies Allergy Unverified 04/16/17 09:29 Home Medications Medication Instructions Recorded Confirmed Type DAFORIN 10 drp PO DAILY #0 02/26/17 History DIAMICRON 1 tab PO BID #0 02/26/17 History LOSARTAN POTASSIUM (COZAAR) 50 mg PO BID #0 tab 02/26/17 History METFORMIN EXT REL (GLUCOPHAGE EXT 1 tab PO BID 30 Days #60 tab 02/26/17 Rx REL) METFORMIN HCL (GLUCOPHAGE) 850 mg PO BID #0 tab 02/26/17 History Simvastatin (Zocor) 10 mg PO QPM #0 tab 02/26/17 History Thiamine Hcl (Vitamin B-1) 1 tab PO DAILY #0 tab 02/26/17 History METFORMIN HCL (GLUCOPHAGE) 500 mg PO BID #0 04/12/17 History Multivitamin 1 tab PO DAILY #0 04/12/17 History GLIMEPIRIDE 1 tab PO DAILY 30 Days #30 tab 04/16/17 History aspirin 81 mg tablet 81 mg PO DAILY 10/29/21 10/29/21 History clopidogrel 75 mg tablet (Plavix) 75 mg PO DAILY 10/29/21 10/29/21 History Patient History Medical History Diabetes High cholesterol HTN (hypertension) Family History Mother Uterine cancer Social History Smoking Status: Current every day smoker Cigarettes Per Day: 1 pack a day; Do You Dip or Chew Tobacco: No; Hx Alcohol Use: Yes Alcohol type: other Hx Substance Use: No Preferred Language: Slovak 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 Beliefs That Will Affect Care: None Current Living Situation: Family Current Living Situation Comment: Lives with daughter Other Information That Helps Us Care for You: No Feels Safe at Home: Yes Safety Concerns: Feels Safe At This Time Assistive Devices: None Review of Systems Review of Systems: As per HPI and below Physical Exam Constitutional: + thin and + frail appearing; no acute distress Neck: normal visual inspection Respiratory: normal respiratory effort; no respiratory distress and no labored breathing Gastrointestinal (Abdomen): Inspection/Auscultation: abdomen normal to inspection Musculoskeletal: Head/Neck/Chest: normocephalic Skin: No visible rashes or lesions Neurologic: awake Psychiatric: Orientation: alert and oriented to person Genitourinary: Richey catheter intact, draining clear yellow urine Results & Data ([facility]) Vital Signs (Past 12 Hours) Vital Signs Temp Pulse Pulse Pulse Resp BP Pulse Ox 10/30/21 07:15 37 C 97 H 16 175/90 H 98 10/30/21 03:40 36.8 C 99 H 16 157/79 H 98 10/29/21 23:23 36.6 C 91 H 20 175/83 H 99 10/29/21 23:00 84 10/29/21 21:30 82 10/29/21 21:23 36.8 C 78 20 154/82 H 100 10/29/21 20:50 81 18 144/83 H 98 10/29/21 20:39 162/116 H PG Care Time/CCT Total # of Minutes Spent Total Time Spent with Patient: Total time spent is greater than 50% in coordination of care (as documented) at patient's floor/unit and/or counseling patient: Coding Level of Care Code 52196 Initial Inpt Care Lvl 2 Diagnoses Hematuria R31.9
[2021-10-30] MEDS: INSULIN ASPART PER UNIT SC SCH ×4 (09:30→20:23)
--- NOTE | 2021-10-30 10:43 | OB/GYN Consultation ---
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 Patient's daughter declined pelvic exam today and wanted referral to tertiary care center so that patient can be seen by KEY BED INSTALLER oncology. Have ordered cancer markers to complete the work-up. All questions were answered. History of Present Illness Reason for Consultation: Adnexal mass, ? Vesicovaginal fistula Attending Physician: Juan Price MD History of Present Illness Patient is a 66-year-old postmenopausal female who was admitted yesterday for blood in urine and abdominal pain. She does not speak any Marshallese but her daughter is next to her and history is taken from her. Her CT of abdomen and pelvis revealed adnexal mass.. CT there is 7.9 x 6.3 cm. Right adnexal mass and ultrasound was recommended. Pelvic ultrasound showed; Uterus: The uterus is anteverted and normal in size. No uterine masses are identified. The uterus measures 6.3 x 2.8 x 3.5 cm. Endometrial stripe: 4 mm which is slightly thickened for postmenopausal patient (upper limits of normal 3 mm). Additionally, of concern is small amount of free fluid seen within the endometrial canal. Right ovary: The right ovary appears grossly enlarged and cystic. There is debris present within the cyst with no soft tissue component. Anatomic Doppler flow is demonstrated at its periphery.. The cystic component measures 7.1 x 5.4 x 7.0 cm. No other ovarian tissue is seen. There is no other evidence for right adnexal mass or cyst. Left ovary: The left ovary is nonvisualized There is no evidence for left adnexal mass or cyst. Cul de sac: There is no free fluid noted in the cul-de-sac. Patient has no history of hormone use, she has not been sexually active for years. There is no history of traumatic delivery including forceps or vacuum. No history of KEY BED INSTALLER surgeries. I encounter with urology team who was recommending referral to tertiary care center for fistula repair. I would also recommend referral to KEY BED INSTALLER oncology on a woman with a large pelvic mass. I will order cancer markers to start the work-up for KEY BED INSTALLER oncology. Patient's daughter declined pelvic exam and wanted that to be deferred to referral hospital. I spoke with Dr. Sadler about the above plan. We will arrange transfer. All questions were answered. Allergies Allergy/AdvReac Type Severity Reaction Status Date / Time No Known Allergies Allergy Unverified 04/16/17 09:29 Home Medications Medication Instructions Recorded Confirmed Type DAFORIN 10 drp PO DAILY #0 02/26/17 History DIAMICRON 1 tab PO BID #0 02/26/17 History LOSARTAN POTASSIUM (COZAAR) 50 mg PO BID #0 tab 02/26/17 History METFORMIN EXT REL (GLUCOPHAGE EXT 1 tab PO BID 30 Days #60 tab 02/26/17 Rx REL) METFORMIN HCL (GLUCOPHAGE) 850 mg PO BID #0 tab 02/26/17 History Simvastatin (Zocor) 10 mg PO QPM #0 tab 02/26/17 History Thiamine Hcl (Vitamin B-1) 1 tab PO DAILY #0 tab 02/26/17 History METFORMIN HCL (GLUCOPHAGE) 500 mg PO BID #0 04/12/17 History Multivitamin 1 tab PO DAILY #0 04/12/17 History GLIMEPIRIDE 1 tab PO DAILY 30 Days #30 tab 04/16/17 History aspirin 81 mg tablet 81 mg PO DAILY 10/29/21 10/29/21 History clopidogrel 75 mg tablet (Plavix) 75 mg PO DAILY 10/29/21 10/29/21 History Patient History Medical History Diabetes High cholesterol HTN (hypertension) Family History Mother Uterine cancer Social History Smoking Status: Current every day smoker Cigarettes Per Day: 1 pack a day; Do You Dip or Chew Tobacco: No; Hx Alcohol Use: Yes Alcohol type: other Hx Substance Use: No Preferred Language: 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 Beliefs That Will Affect Care: None Current Living Situation: Family Current Living Situation Comment: Lives with daughter Other Information That Helps Us Care for You: No Feels Safe at Home: Yes Safety Concerns: Feels Safe At This Time Assistive Devices: None Physical Exam Constitutional: + thin, + cachectic and + frail appearing Results & Data ([facility]) Vital Signs (Past 12 Hours) Vital Signs Temp Pulse Pulse Pulse Resp BP Pulse Ox 10/30/21 07:15 37 C 97 H 16 175/90 H 98 10/30/21 03:40 36.8 C 99 H 16 157/79 H 98 10/29/21 23:23 36.6 C 91 H 20 175/83 H 99 10/29/21 23:00 84 (1) Hematuria Hematuria type: gross Qualified Code(s): R31.0 - Gross hematuria
--- NOTE | 2021-10-30 11:17 | Pharmacy Report ---
Pharmacy Glycemic Short Note 2 - Date of Service October 30, 2021 - Glycemic Short BSG Results (Last 24 hours): 10/29/21 10/29/21 10/30/21 13:14 21:46 02:58 Glucose 284 H 152 H POC Glucose 84 10/30/21 08:11 Glucose POC Glucose 128 H OUTPATIENT ANTIDIABETIC REGIMEN: * Metformin + glimepiride HbA1c: 6.7% (10/30/21) ASSESSMENT: * MS is a 66 year old female who presented yesterday evening with hematuria * Originally made NPO until evaluation by urology/OBGYN, now ordered diet with lunch * Patient will well-controlled T2DM with PO medications only * Will utilize conservative basal/bolus regimen at this time * Will allow for additional dose of Lantus this evening if needed PLAN FOR INPATIENT GLYCEMIC CONTROL: * Hold outpatient oral diabetes medications * Basal insulin * Lantus 5 units SC daily * Lantus 0-5 units SC HS * Bolus insulin * NovoLog per scale ACHS or Q6hrs while NPO * Goal Range: Low 110 mg/dL - High 140 mg/dL * Correction Factor: 60 mg/dL/unit * Nutritional / Prandial insulin per carb ratio of 1 unit per 20 grams CHO consumed
[2021-10-30] MEDS: NICOTINE 21 MG/24 HR TDSY TD SCH (11:18)
[2021-10-30] MEDS: THIAMINE HCL 100 MG TAB PO SCH (11:18)
[2021-10-30] MEDS: LOSARTAN POTASSIUM 50 MG TAB PO SCH ×2 (11:18→20:17)
[2021-10-30] MEDS ORDERED: INSULIN GLARGINE SOLOSTAR 100 UNITS/ML 3 ML PEN SC ONE (11:30)
[2021-10-30] MEDS: MULTIVITAMIN TAB PO SCH (15:46)
--- NOTE | 2021-10-30 15:46 | Hospitalist Progress Note ---
Date of Service October 30, 2021 Assessment & Plan (1) Hematuria: (2) Pelvic mass: Plan: Pelvic Mass/Right Adnexal Mass ? 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 No evidence for obstruction. Normal small bowel. There is also a fluid-filled structure in the right lower quadrant which was originally felt to represent a loop of bowel. On further review, it appears to represent a separate structure such as an adnexal cyst or ovarian cyst. It measures 7.9 x 6.3 cm. Again, pelvic ultrasound would be helpful for further evaluation. Following consultation with the ordering physician, it is noted that the patient has not had instrumentation of the bladder. There are a few air bubbles also seen along the floor the bladder and posterior to the bladder in the region of the vagina. The presence of a fistula cannot be excluded. Additionally, there is heterogeneous enhancement of the uterus which is tilted to the right side. There is suspicion of thickening of the endometrium for a patient of this age. Follow-up pelvic ultrasound is recommended for further evaluation. -- Monitor H&H and transfuse as needed Tumor markers pending Appreciate SURG PHYSICIAN ASST, urology input Hold aspirin, Plavix for now Given complexity of patient's condition, patient needs evaluation by colorectal surgery for further management. Patient is accepted at [facility] by Dr. Igor Knowles (colorectal surgeon) for further management (3) Hypertension: Plan: Hypertensive Urgency Likely situational secondary to pain Continue losartan IV labetalol as needed (4) Anemia: Plan: Likely multifactorial: Anemia of chronic disease, hematuria Monitor H&H Transfuse as needed Severe Protein calorie malnutrition BMI 16 Dietitian consulted (5) Hyponatremia: Plan: Sodium level improved with IV fluids (6) Diabetes: Plan: HbA1c 6.7 Continue insulin Hold p.o. meds Monitor BGs DVT PPx: - teds, scds Re: Hematuria CODE STATUS: Full code Disposition [facility] Admission and Anticipated Discharge Date Admission Date: October 29, 2021 Subjective Patient is seen and examined at bedside Hematuria resolved Headache resolved as well Abdominal pain is controlled Denies any other complaints Discussed with patient's family at bedside Also discussed with OGYN/Urology Plan to be discharged to tertiary facility for further management Review of Systems Review of Systems: All systems reviewed & are unremarkable except as noted in Subjective Physical Exam Physical Exam: Physical Exam: Vitals signs as noted above General Appearance:Thin, frail, chronic ill appearing, no apparent distress Head: normocephalic, Atraumatic Eyes: normal inspection, EOMI Neck: supple, Trachea midline Respiratory/Chest: Normal breath sounds, CTA Cardiovascular: S1, S2, No murmur Abdomen/GI:Soft, R flank tender, Bowel sounds present Extremities/Musculoskeletal:normal inspection, no edema Neurologic/Psych:AAOX3, grossly no focal neurological deficits Skin: normal color, warm Results & Data Results & Data ([facility]) Vital Signs (Past 12 Hours) Vital Signs Temp Pulse Pulse Resp BP Pulse Ox 10/30/21 15:35 97 H 10/30/21 12:08 37.1 C 96 H 18 182/92 H 99 10/30/21 08:00 99 H 10/30/21 07:15 37 C 97 H 16 175/90 H 98 Laboratory Results Short CBC 10/29/21 10/30/21 Range/Units 18:28 02:58 WBC 9.54 (4.8-10.8) K/uL Hgb 10.6 L 8.2 L (12.0-16.0) g/dL Hct 32.1 L 24.8 L (37-47) % Plt Count 285 (130-400) K/uL BMP 10/30/21 02:58 Sodium 139 Potassium 4.1 Chloride 109 H Carbon Dioxide 24 BUN 25 H Creatinine 0.61 Glucose 152 H Calcium 9.0 Liver Function 10/30/21 Range/Units 02:58 Total Bilirubin 0.3 (0.2-1.0) mg/dl Direct Bilirubin 0.0 (0-0.2) mg/dl AST 13 (13-39) U/L ALT 14 (7-52) U/L Alkaline Phosphatase 97 (34-104) U/L Albumin 3.5 (3.4-5.0) gm/dl (1) Hypertension Hypertension type: unspecified Qualified Code(s): I10 - Essential (primary) hypertension (2) Anemia Anemia type: unspecified type Qualified Code(s): D64.9 - Anemia, unspecified
[2021-10-30] MEDS: LORazepam 0.5 MG TAB PO PRN (16:28)
[2021-10-30] MEDS: LABETALOL HCL IV 5 MG/ML 20ML IV PRN (16:30)
[2021-10-30] MEDS: cefTRIAXone SODIUM 1,000 MG/50 ML BAG IV SCH (20:20)
[2021-10-30 20:41] LABS: Hematocrit (blood only) 25.2 % (37-47); Hemoglobin 8.2 g/dL (12.0-16.0)
[2021-10-30] MEDS ORDERED: INSULIN GLARGINE SOLOSTAR 100 UNITS/ML 3 ML PEN SC SCH (21:00)
[2021-10-31 07:41] LABS: Hemoglobin 8.5 g/dL (12.0-16.0); Mean Corpuscular Hemoglobin 30.2 pg (25-34); Mean Corpuscular Hgb Conc 32.7 g/dL (32-36); Mean Corpuscular Volume 92.5 fL (80-100); Mean Platelet Volume 9.3 fL (7.4-10.4); Platelet Count 312 K/uL (130-400); RDW Coefficient of Variation 12.3 % (11.5-14.5); Red Blood Count 2.81 M/uL (4.2-5.4); White Blood Count 9.57 K/uL (4.8-10.8)
[2021-10-31 08:05] LABS: BUN Creatinine Ratio 32.9 (10-20); Creatinine Clr Calc Pharmacy 46.9 ml/min; Est GFR (African American) 95.4 ml/min; Est GFR (Non-African American) 82.3 ml/min; Potassium 4.6 mmol/L (3.5-5.1)
[2021-10-31] MEDS: NICOTINE 21 MG/24 HR TDSY TD SCH (08:13)
[2021-10-31] MEDS: THIAMINE HCL 100 MG TAB PO SCH (08:13)
[2021-10-31] MEDS: MULTIVITAMIN TAB PO SCH (08:13)
[2021-10-31] MEDS: LOSARTAN POTASSIUM 50 MG TAB PO SCH (08:14)
[2021-10-31] MEDS: INSULIN ASPART PER UNIT SC SCH ×2 (08:18→12:15)
[2021-10-31] MEDS ORDERED: INSULIN GLARGINE SOLOSTAR 100 UNITS/ML 3 ML PEN SC ONE (09:00)
[2021-10-31] MEDS: LORazepam 0.5 MG TAB PO PRN (09:55)
[2021-10-31] MEDS: LABETALOL HCL IV 5 MG/ML 20ML IV PRN (09:55)
--- NOTE | 2021-10-31 11:05 | Hospitalist Progress Note ---
Date of Service October 31, 2021 Assessment & Plan (1) Hematuria: (2) Pelvic mass: Plan: Pelvic Mass/Right Adnexal Mass ? 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 No evidence for obstruction. Normal small bowel. There is also a fluid-filled structure in the right lower quadrant which was originally felt to represent a loop of bowel. On further review, it appears to represent a separate structure such as an adnexal cyst or ovarian cyst. It measures 7.9 x 6.3 cm. Again, pelvic ultrasound would be helpful for further evaluation. Following consultation with the ordering physician, it is noted that the patient has not had instrumentation of the bladder. There are a few air bubbles also seen along the floor the bladder and posterior to the bladder in the region of the vagina. The presence of a fistula cannot be excluded. Additionally, there is heterogeneous enhancement of the uterus which is tilted to the right side. There is suspicion of thickening of the endometrium for a patient of this age. Follow-up pelvic ultrasound is recommended for further evaluation. 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 Patient is accepted at [facility] by Dr. Igor Knowles (colorectal surgeon) for further management Plan to be transferred to tertiary care facility today (3) Hypertension: Plan: Hypertensive Urgency Likely situational secondary to pain Continue losartan IV labetalol as needed (4) Anemia: Plan: Likely multifactorial: Anemia of chronic disease, hematuria Monitor H&H Transfuse as needed Severe Protein calorie malnutrition BMI 16 Dietitian consulted (5) Hyponatremia: Plan: Sodium 140 today (6) Diabetes: Plan: HbA1c 6.7 Continue insulin Hold p.o. meds Monitor BGs DVT PPx: - teds, scds Re: Hematuria CODE STATUS: Full code Disposition [facility] today Admission and Anticipated Discharge Date Admission Date: October 29, 2021 Subjective Patient is seen and examined at bedside States having some abdominal discomfort earlier today which improved with medication No recurrence of hematuria Plan to be transferred to [facility] today Review of Systems Review of Systems: All systems reviewed & are unremarkable except as noted in Subjective Physical Exam Physical Exam: Physical Exam: Vitals signs as noted above General Appearance:Thin, frail, chronic ill appearing, no apparent distress Head: normocephalic, Atraumatic Eyes: normal inspection, EOMI Neck: supple, Trachea midline Respiratory/Chest: Normal breath sounds, CTA Cardiovascular: S1, S2, No murmur Abdomen/GI:Soft, R flank tender, Bowel sounds present Extremities/Musculoskeletal:normal inspection, no edema Neurologic/Psych:AAOX3, grossly no focal neurological deficits Skin: normal color, warm Results & Data Results & Data ([facility]) Vital Signs (Past 12 Hours) Vital Signs Temp Pulse Pulse Pulse Resp BP BP 10/31/21 10:48 36.8 C 92 H 18 172/85 H 10/31/21 09:51 93 H 20 183/102 H 186/100 H 10/31/21 08:08 36.7 C 91 H 88 20 176/88 H 10/31/21 08:05 36.7 C 91 H 88 20 176/88 H 208/129 H 10/31/21 07:24 89 10/31/21 07:09 36.7 C 88 20 176/88 H 10/31/21 04:23 37 C 91 H 91 H 19 174/85 H 10/30/21 23:55 37.4 C 97 H 20 162/76 H Pulse Ox 10/31/21 10:48 98 10/31/21 09:51 96 10/31/21 08:08 96 10/31/21 08:05 96 10/31/21 07:24 10/31/21 07:09 96 10/31/21 04:23 95 10/30/21 23:55 97 Laboratory Results Short CBC 10/30/21 10/31/21 Range/Units 20:30 07:05 WBC 9.57 (4.8-10.8) K/uL Hgb 8.2 L 8.5 L (12.0-16.0) g/dL Hct 25.2 L 26.0 L (37-47) % Plt Count 312 (130-400) K/uL BMP 10/31/21 07:05 Sodium 140 Potassium 4.6 Chloride 109 H Carbon Dioxide 26 BUN 25 H Creatinine 0.76 Glucose 173 H Calcium 9.0 (1) Hypertension Hypertension type: unspecified Qualified Code(s): I10 - Essential (primary) hypertension (2) Anemia Anemia type: unspecified type Qualified Code(s): D64.9 - Anemia, unspecified
--- NOTE | 2021-10-31 11:06 | Discharge Summary ---
Date of Service October 31, 2021 Admission HPI Per Admitting Provider This is a 66 yo F with PMhx of DM II, HTN, chronic tobacco use, history of alcohol use, and syncope who presents with hematuria x 1 week to the hospital. She has recently relocated here from [place] as her daughter has lived in [place] for over 20 years. The patient does not speak any [place]ese, but the daughter who is present at beside is fluent. Pt reports hematuria, bright red blood with urination for the past week. She also has right sided flank pain and RLQ which started about 1 week ago, and rates her pain as 8/10. Alleviating factors include laying down, when she is up and moving it is worse. The pain radiates in the lower abdomen. Her last bowel movement was this morning. Denies any nausea, vomiting, diarrhea. Pt feels palpitations. Notes her appetite has been down, and was previously at 68 kg last year and per daughter was at 35 kg and has gained some weight recently due to being here in the [place] with her daughter and eating better Has smoked 1 ppd x entire adult life. Ok with using a nicotine patch. Reports that the last time she drank alcohol was 5 years ago. Patient has recently established with PCP, Dr. Patel and has seen him once. She also was in to see an toll gate keeper recently as was informed with her diabetes that she was at risk of becoming blind due to uncontrolled glucoses. Sugars were around 800 consistently whenever she arrived here in the [place], and have been improved down into the 300s more recently with starting insulin and metformin. In regards to her home medications, doses are unknown at this time. She is taking baby aspirin and Plavix, but we will hold these here with her hematuria. Due to CT of the abdomen showing air bubbles along the floor of the bladder and posterior to the bladder in the region of the vagina-- question and concern for fistula?, Also pelvic ultrasound reveals large right adnexal/ovarian cyst with debris seen within it, probably represents a cystadenoma. CT measures this ovarian cyst to be 7.9 x 6.3 cm. Ultrasound reveals endometrium thickening and trace free fluid seen within the endometrial canal. Denies any previous surgical history. Daughter reports that she may have had gynecological exam many many years ago but has not had routine cancer/preventative screenings. Admission Exam Per Admitting Provider Physical Exam: Vitals signs as noted above General Appearance:Thin, frail, chronic ill appearing, no apparent distress Head: normocephalic, Atraumatic Eyes: normal inspection, EOMI Neck: supple, Trachea midline Respiratory/Chest: Normal breath sounds, CTA Cardiovascular: S1, S2, No murmur Abdomen/GI:Soft, R flank tender, Bowel sounds present Extremities/Musculoskeletal:normal inspection, no edema Neurologic/Psych:AAOX3, grossly no focal neurological deficits Skin: normal color, warm Principal Diagnosis Pelvic Mass/Right Adnexal Mass ? 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 No evidence for obstruction. Normal small bowel. There is also a fluid-filled structure in the right lower quadrant which was originally felt to represent a loop of bowel. On further review, it appears to represent a separate structure such as an adnexal cyst or ovarian cyst. It measures 7.9 x 6.3 cm. Again, pelvic ultrasound would be helpful for further evaluation. Following consultation with the ordering physician, it is noted that the patient has not had instrumentation of the bladder. There are a few air bubbles also seen along the floor the bladder and posterior to the bladder in the region of the vagina. The presence of a fistula cannot be excluded. Additionally, there is heterogeneous enhancement of the uterus which is tilted to the right side. There is suspicion of thickening of the endometrium for a patient of this age. Follow-up pelvic ultrasound is recommended for further evaluation. -- Monitor H&H and transfuse as needed Tumor markers pending Appreciate CAGE FIGHTER, urology input Hold aspirin, Plavix for now Given complexity of patient's condition, patient needs evaluation by colorectal surgery for further management. Patient is accepted at [facility] by Dr. Igor Knowles (colorectal surgeon) for further management Plan to be transferred to tertiary care facility today (3) Hypertension: Hypertensive Urgency Likely situational secondary to pain Continue losartan IV labetalol as needed (4) Anemia: Likely multifactorial: Anemia of chronic disease, hematuria Monitor H&H Transfuse as needed Severe Protein calorie malnutrition BMI 16 Dietitian consulted (5) Hyponatremia: Sodium 140 today (6) Diabetes: HbA1c 6.7 Continue insulin Hold p.o. meds Monitor BGs DVT PPx: - teds, scds Re: Hematuria CODE STATUS: Full code Disposition [facility] today Total Time Total Time Spent Total Time Spent (In Minutes): 45 minutes Discharge Plan Discharge Items Patient Disposition: Transfer Acute Care Hospital Reason For Visit: HEMATURIA, BLADDER MASS/FISTULA Discharge Diagnosis: Pelvic Mass/Right Adnexal Mass ? 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 Fistula Hypertensive Urgency Condition on Discharge: Fair Activity: Per Instructions section Exercise/Sports: Wait until after follow-up appointment Non-emergency contact: Primary Care Provider and Surgeon Call non-emergency contact if: you have any medication questions, your symptoms worsen, your pain is concerning for you and you have a fever Follow-up/Referrals: PCP,NO [Primary Care Provider] - Diet: Carb Consistent or DM2 Addtl Attending Provider Instructions: Follow up with colorectal surgery Dr.Luiz Knowles at [facility] for further management --Plavix and Aspirin held during hospitalization due to hematuria Seek immediate medical attention if your symptoms reoccur or worsen Please take all medications as instructed on discharge list below. Please call if you have any questions or problems. You can reach a [facility] hospitalist on duty at [facility] 24 hours a day by calling [phone] Pending Studies at Discharge: Yes Studies:: Tumor Markers Stand-Alone Forms: My [facility] Skilled Items Patient informed of condition?: Yes DNR: No Discharge Level of Care: Other Communicable Disease: No Discharge Prognosis: Stable Lines: Peripheral IV Urinary Catheter: Yes Medications and DC Order Prescriptions: Continued DAFORIN 10 drp PO DAILY Qty: 0 RF: 0 DIAMICRON 1 tab PO BID Qty: 0 RF: 0 LOSARTAN POTASSIUM (COZAAR) 50 MG tablet 50 mg PO BID Qty: 0 RF: 0 METFORMIN HCL (GLUCOPHAGE) 850 MG tablet 850 mg PO BID Qty: 0 RF: 0 Simvastatin (Zocor) 10 mg tablet 10 mg PO QPM Qty: 0 RF: 0 Thiamine Hcl (Vitamin B-1) tablet 1 tab PO DAILY Qty: 0 RF: 0 METFORMIN EXT REL (GLUCOPHAGE EXT REL) 500 MG tablet 1 tab PO BID 30 Days Qty: 60 RF: 1 METFORMIN HCL (GLUCOPHAGE) 500 MG tablet 500 mg PO BID Qty: 0 RF: 0 Multivitamin tablet 1 tab PO DAILY Qty: 0 RF: 0 GLIMEPIRIDE 4 MG tablet 1 tab PO DAILY 30 Days Qty: 30 RF: 5 clopidogrel [Plavix] 75 mg Tablet 75 mg PO DAILY RF: 0 aspirin 81 mg Tablet 81 mg PO DAILY RF: 0 Discharge Orders: Discharge Order (Routine); Ordered 10/31/21 Ordered By: Juan Price Admission Data Admit Date/Time: 10/29/21 17:25 Attending Provider: Juan Price Admit Provider: Juan Price Primary Care Provider: PCP,NO Other Providers: Jose Miguel Mitchell ; Giorgio Amador ; Juan Price Other Interventions: Discharge Summary Assessment (RN) Last Done: 10/31/21 08:08
== END 2021-10-31 12:45 | disposition short-term general hospital (02) | DRG 754 ==
LOC: ED 12:31 → EDINP 17:25 → 2N 21:01
DX: Z79.4 Long term (current) use of insulin; F17.210 Nicotine dependence, cigarettes, uncomplicated; C76.3 Malignant neoplasm of pelvis; N82.0 Vesicovaginal fistula; E43 Unspecified severe protein-calorie malnutrition; E87.1 Hypo-osmolality and hyponatremia; Z79.82 Long term (current) use of aspirin; Z79.84 Long term (current) use of oral hypoglycemic drugs; D63.0 Anemia in neoplastic disease; Z78.0 Asymptomatic menopausal state; Z79.02 Long term (current) use of antithrombotics/antiplatelets; E11.9 Type 2 diabetes mellitus without complications; R31.0 Gross hematuria; Z68.1 Body mass index [BMI] 19.9 or less, adult; I16.0 Hypertensive urgency; I10 Essential (primary) hypertension